=== PATIENT | female | born 2000 | race Caucasian/White ===

== ENCOUNTER 2023-08-11 09:25 | Emergency (ER) | payer OTHER, SELFPAY ==
[2023-08-11 09:53] VITALS: BP 128/72; PULSE 93; RESP 16; TEMP 36.9; O2SAT 96; BMI 43.9
[2023-08-11 11:18] LABS: Influenza A PCR NEGATIVE (Negative); Influenza B PCR NEGATIVE (Negative); Resp Syncy Virus RNA Qual PCR NEGATIVE (Negative); SARS COV2 PCR INHOUSE NEGATIVE (Negative)
[2023-08-11 11:40] VITALS: BP 122/76; PULSE 95; TEMP 36.8; O2SAT 96
[2023-08-11 12:12] LABS: IDNOW Serial# 08D9AD1C; Strep A Nucleic Acid Negative (Negative)
--- NOTE | 2023-08-11 12:20 | ED_ITS ---
HPI - General Adult General Chief complaint: Nausea/Vomiting/Diarrhea Stated complaint: Swollen Tonsils/Vomiting Time Seen by Provider: 08/11/23 11:41 Source: patient, RN notes reviewed and old records reviewed Mode of arrival: ambulatory Limitations: no limitations History of Present Illness ED Provider: DONOVAN QIU PA-C HPI narrative: 22 year old female with no significant pmhx presents to the ED today for evaluation of nausea and vomiting x3 days. Admits to decreased PO intake secondary to nausea along with constipation secondary to decreased PO intake. No episodes of vomiting today. Reports waking up this morning with sore throat and swelling to her tonsils with associated odynophagia. No dysphagia. Denies known sick contacts. Denies chance of . Denies fever, chills, cough, sputum production, rashes, diarrhea, abdominal pain, dysuria, hematuria. Related Data Previous Rx's ?Medication ?Instructions ?Recorded benzocaine 15 mg-menthol 2.6 mg 1 merline mucous membrane Q2-4H PRN 08/11/23 lozenges (Cepacol Sore Throat sore throat #16 ea (benzocaine-menthol)) ondansetron 4 mg disintegrating 4 mg PO DAILY PRN nausea and 08/11/23 tablet vomiting 5 days #14 tabs penicillin V potassium 500 mg 500 mg PO BID 10 days #20 tabs 08/11/23 tablet prednisone 20 mg tablet 40 mg (2 x 20 mg) PO DAILY 4 days 08/11/23 #8 tabs Allergies Allergy/AdvReac Type Severity Reaction Status Date / Time No Known Allergies Allergy Verified 08/11/23 09:56 Review of Systems Review of Systems: Constitutional: No fever, chills, fatigue, night sweats, weight changes ENT/Mouth: No ear pain, hearing loss, nasal congestion, sinus pain, rhinorrhea, +sore throat, +odynophagia, No dysphagia Eyes: No eye pain, swelling, redness, vision changes, discharge Cardio: No chest pain, palpitations, SALGUERO, orthopnea, peripheral edema Pulm: No SOB, cough, sputum, wheezing, dyspnea, hemoptysis GI: No nausea, vomiting, hematemesis, abdominal pain, diarrhea, constipation, hematochezia, melena : No irregular bleeding, dysuria, frequency, urgency, hesitancy, hematuria, flank pain MSK: No back pain, neck pain, joint pain, myalgias Skin: No lesions, rashes Neuro: No weakness, numbness, paresthesias, LOC, dizziness, headache All other systems reviewed and are negative. [facility] Past Medical History Attestation statement: The following information was validated with the patient. Source: old records reviewed and nursing notes reviewed Social History Social History Advance Directives: No Advance Directives Information Provided: Yes Do you have a plan to hurt others: No Plan Physical Exam ED Vital Signs: Vital Signs - 24 hr 08/11/23 09:53 08/11/23 11:40 08/11/23 14:00 Temperature 98.5 F 98.2 F 98.6 F Pulse Rate 93 95 81 Respiratory Rate 16 Blood Pressure 128/72 122/76 114/62 Pulse Oximetry 96 96 94 Oxygen Delivery Method Room Air Room Air Room Air 08/11/23 14:42 Temperature 98.6 F Pulse Rate 81 Respiratory Rate 16 Blood Pressure 114/62 Pulse Oximetry 94 Oxygen Delivery Method Room Air BMI result Body Mass Index 43.9 Vital signs stable, afebrile Const General: cooperative, healthy appearing, comfortable and no acute distress Orientation/consciousness: patient oriented x3 Limitations: no limitations HENMT Other: + posterior oropharynx mildly erythematous. There is bilateral tonsillar edema however uvula is midline. Airway is patent. No stridor. There are minimal bilateral tonsillar exudates. No peritonsillar masses. She is controlling secretions and speaking in full complete sentences. Head: Yes normal to inspection, Yes No palpable skull fracture present, Yes normocephalic and Yes atraumatic Ears: hearing grossly normal bilaterally, external ears normal, TM's normal bilaterally, EAC's normal, mastoids normal and no periauricular adenopathy General nose exam: Normal external nose present and No nasal discharge present Face and sinus: Yes normal facial exam and Yes sinuses nontender Eyes General: appearance normal, both eyes and all related structures Pupils: Equal, round and reactive pupils present Neck Other: + no cervical, submandibular or submental LAD. no anterior neck swelling Neck: Yes normal visual inspection and Yes full ROM Resp Effort & Inspection: normal respiratory effort and able to speak in complete sentences Auscultation: clear to auscultation bilaterally Cardio Rate: regular rate Rhythm: regular rhythm GI Other: Abdomen soft, nondistended, nontender to palpation, no rebound tenderness or guarding. No splenomegaly noted. No palpable masses. Normoactive bowel sounds x4. Inspection: Yes normal to inspection General: Yes no CVA tenderness Back/Spine/Pelvis Back: no CVA tenderness Skin General skin exam: no rashes or lesions noted Neuro General: patient oriented x3, gait normal and moves all extremities Cranial nerves: Yes Equal, round and reactive pupils present Extrem General: Yes normal to inspection Course Course Course Narrative: 1312-- patient has tested positive for covid/flu/rsv/strep throat. Patient with b/l tonsillar edema. No concern for airway compromise. 10 of decadron given along with zofran. > given N/V over the last few days, will obtain labs to r/o dehydration and . patient agreeable with this. 1430-- Blood draw attempted by 2 different ED Techs without success. Third attempt at blood draw performed by technical staff assistant Jeremi however when she entered the room, patient states It's my body and I am declining blood work . Patient initially agreeable to lab work. On re-evaluation, patient tells me that she would like to be discharged from the ED. there are no clinical findings to indicate dehydration. I did informed patient that I would like to test her for prior to starting her on any medication and she tells me that there is no chance that she is and does not want to be tested for this. Her physical exam findings are consistent with strep throat so she will be treated for this even though she tested negative. Zofran, penicillin and prednisone sent to pharmacy for treatment. Patient has remained stable throughout ED visit today. Discussed worrisome signs and symptoms and when to return to the ED. All questions answered at this time. Patient is agreeable with disposition and stable for discharge. Medications Administered Discontinued Medications Generic Name Dose Route Start Last Admin Trade Name Felixq PRN Reason Stop Dose Admin Dexamethasone Sodium Phosphate 10 mg 08/11/23 12:17 08/11/23 12:45 Dexamethasone Sod Phosphate 10 Mg/Ml Vial IVPUSH 08/11/23 12:18 10 mg ONCE ONE Administration Ondansetron HCl 4 mg 08/11/23 12:17 08/11/23 12:45 Ondansetron Odt 4 Mg Tab.Rapdis TRANSLINGU 08/11/23 12:18 4 mg ONCE ONE Administration Medical Decision Making Medical Decision Making [facility] Narrative: 22 year old female with no significant pmhx presents to the ED today for evaluation of nausea and vomiting x3 days. Vital signs stable. Afebrile. Patient is nontoxic-appearing and in no acute distress. On exam, posterior oropharynx mildly erythematous. There is bilateral tonsillar edema however airways patent. There is no stridor. There are minimal exudates noted to bilateral tonsils. No peritonsillar masses. Uvula is midline. Controlling secretions and speaking in full complete sentences. Bilateral EACs and TMs WNL. No cervical submental or submandibular lymphadenopathy noted. No anterior neck swelling. Skin warm, dry, intact. Abdomen is soft, ND/NT, no rebound or guarding. No palpable splenomegaly. Normoactive bowel sounds x4. Differential diagnosis includes viral syndrome, strep throat, gastroenteritis, dehydration, anemia, electrolyte abnormality, . Unlikely mono, [employer], retropharyngeal abscess, Alfonso's angina. Plan for viral and strep testing, basic labs, test, decadron, and re- evaluation. Differential Diagnosis Differential Diagnoses: The differential diagnosis associated with the presentation includes as above. Admission/Observation Not indicated Lab Data MDM Lab Attestation statement: I reviewed the patient's lab results. as above Labs: Lab Results 08/11/23 08/11/23 Range/Units 10:26 10:27 Influenza Type A (PCR) NEGATIVE (Negative) Influenza Type B (PCR) NEGATIVE (Negative) RSV RNA Qual (PCR) NEGATIVE (Negative) SARS-CoV-2 RNA (RT-PCR) NEGATIVE (Negative) S. pyogenes GrpA SYLVIA Negative (Negative) Independent Historian Clinical information obtained from an independent historian. History obtained from or confirmed by: Parent (mom) External Record Review External record reviewed: Inpatient record Tests considered The following testing was considered but not selected: I considered ordering lab work however patient is declining at this time. Prescription Management I considered prescription management with: Antibiotic (penicillin) and Other (Prednisone, Zofran) Social Determinants Patient?s care significantly limited by Social Determinants of Health including: Other Social Determinant of Health Critical Care Time Critical Care Time Critical Care Time: No Discharge Plan Discharge Clinical Impression: Acute streptococcal pharyngitis Patient Disposition: Home, Self-Care Instructions: Pharyngitis (ED), Strep Throat (DC) Additional Instructions: You were seen in the ED today for evaluation of sore throat. You tested negative for COVID, flu, RSV. Additionally tested negative for strep throat however your physical exam is consistent with strep throat. You are declining blood work today. Penicillin is an antibiotic that has been sent to your pharmacy. Take this twice daily for the next 10 days to treat strep throat. Do not stop taking these antibiotics early or miss any doses as this may cause infection to return or worsen. Prednisone as a steroid that has been sent to your pharmacy to help with tons illar swelling. You were given a dose of Decadron, another steroid in the ED today so please start your prednisone prescription tomorrow. Cepacol throat lozenges have been sent to your pharmacy to help with throat pain. You may also purchase [id number] chloraseptic spray to numb your throat. Take Tylenol and ibuprofen as needed for body aches or fevers. Make sure to change your toothbrush as this contains bacteria. Strep throat is contagious. If anyone else in your household is exhibiting symptoms, please advise them to come to the ED, urgent care, or to see their primary care provider. Follow up with your primary care provider as needed. Return to the emergency department if your symptoms persist or worsen despite treatment or if you have difficulty swallowing, opening your mouth, or develop a rash. In the case of emergency, call 911.? Prescriptions: New penicillin V potassium 500 mg tablet 500 mg PO BID 10 Days Qty: 20 0RF Cepacol Sore Throat (clair-men) 15-2.6 mg lozenge 1 merline mucous membrane Q2-4H PRN (Reason: sore throat) Qty: 16 0RF ondansetron 4 mg tablet,disintegrating 4 mg PO DAILY PRN (Reason: nausea and vomiting) 5 Days Qty: 14 0RF prednisone 20 mg tablet 40 mg PO DAILY 4 Days Qty: 8 0RF Stand Alone Forms: Work/School Release Interventions: ED Discharge Assessment Last Done: 08/11/23 14:42 Discharge Date/Time: 08/11/23 14:43 Print Language: Occitan
[2023-08-11] MEDS: dexAMETHasone sod phosphate 10 MG/ML VIAL IVPUSH (12:45)
[2023-08-11] MEDS: Ondansetron ODT 4 MG TAB.RAPDIS TRANSLINGU (12:45)
--- NOTE | 2023-08-11 12:48 | PC.NURSE ---
pt medicated per order
--- NOTE | 2023-08-11 13:56 | MHC.EDTECH ---
pt refusing blood draw for now, says we can try to draw again in a bit
[2023-08-11 14:00] VITALS: BP 114/62; PULSE 81; TEMP 37; O2SAT 94
--- NOTE | 2023-08-11 14:34 | PC.NURSE ---
few attempts have been made for labs that were unsuccessful, pt is now refusing labs. pt stated Its my body and I dont want labs provider is now aware.
[2023-08-11 14:42] VITALS: BP 114/62; PULSE 81; RESP 16; TEMP 37; O2SAT 94
== END 2023-08-11 14:43 | disposition home or self-care (01) ==
PROVIDERS: Emergency Provider Emergency Medicine
DX: J02.0 Streptococcal pharyngitis (principal); R11.2 Nausea with vomiting, unspecified; Z03.818 Encounter for observation for suspected exposure to other biological agents ruled out
CPT/HCPCS: 0241U; 87651; 99283; J1100